=== PATIENT | male | born 1970 | race Caucasian/White ===

== ENCOUNTER 2017-06-18 08:47 | Day surgery (SDC) | payer BC, OTHER ==
--- NOTE | 2017-06-12 15:28 | GHP ---
[f rep st] PREOP HISTORY AND PHYSICAL DATE OF ADMISSION: 06/18/2017 CHIEF COMPLAINT: Right ankle. HISTORY OF PRESENT ILLNESS: Patient is a 47-year-old who had previously undergone a right ankle arthrodesis. The patient did well initially, but was having progressive pain in his subtalar joint. He is having significant limitations in his activity level secondary to his symptoms. PHYSICAL EXAMINATION: GENERAL: On examination, he is 5 feet 11 inches tall, weighs 335 pounds. HEENT: Head is normocephalic. Pupils equal, round, reactive to light. Extraocular eye movements intact. NECK: Supple. No JVD or lymphadenopathy. CHEST: Clear to auscultation. HEART: Regular rate and rhythm. No murmurs or gallops. ABDOMEN: Soft, nontender, nondistended. GENITAL, RECTAL, AND BREASTS: Deferred. EXTREMITIES: Reveal tenderness in his lateral subtalar region. He has a clinically solid ankle arthrodesis. MEDICINES: Takes no medicines. ALLERGIES: He lists no known drug allergies. SOCIAL HISTORY: Negative for tobacco use. SURGICAL HISTORY: Positive for right ankle surgery, hernia surgery. PAST MEDICAL HISTORY: Positive for elevated cholesterol and sleep apnea. IMPRESSION: 1. Right subtalar arthrosis. 2. Status post right total ankle arthroplasty. PLAN: Based on persistence symptoms, he is interested in pursuing operative treatment. From an operative standpoint, subtalar arthrodesis and takedown of his ankle arthrodesis and conversion to a total ankle arthroplasty are recommended. /[id number]/MODL MTDD
[2017-06-18] MEDS ORDERED: BUPIVACAINE 0.5% 30 ML SDV ONE ×3 (08:49→11:54)
[2017-06-18] MEDS ORDERED: LR 1,000 ML IV ONE (09:05)
[2017-06-18] MEDS ORDERED: ceFAZolin 3 GM in STERILE WATER INJ 30 ML IV ONE (10:00)
[2017-06-18] MEDS ORDERED: oxyCODONE IR 5 MG TAB PO PRN (10:21)
[2017-06-18] MEDS ORDERED: PROMETHAZINE HCL 25 MG/ML INJ IVP PRN (10:21)
[2017-06-18] MEDS ORDERED: ONDANSETRON 4 MG/2 ML VIAL IVP PRN ×2 (10:21→15:05)
--- NOTE | 2017-06-18 10:21 | PDHPUP ---
History & Physical Update H&P update statement: This history and physical update is based on an assessment of the patient which was completed after admission or registration (within 24 hours), but prior to the surgery/procedure. HPI Isacc presents today to further discuss the prospect of orthopedic surgery concerning his right ankle advanced subtalar arthrosis. He reports no changes in his symptoms since his previous visit. ROS ROS as noted in the HPI Physical Exam Patient is a 47-year-old male. Left with heel valgus and loss of the longitudinal arch. Right shows physiologic heel valgus and maintenance of the arch. Bilateral dorsalis pedis and tibialis posterior pulses are palpable. Dermatologically, there are no abnormal callosities, lesions or ulcers. Sensations are normal in sural and deep/superficial peroneal nerve distribution bilaterally. The right foot is markedly tender overlying the lateral subtalar joint. Essentially no hindfoot ROM. No ankle ROM (in the setting of fusion). Well- healed anterior surgical incision. The left foot/ankle demonstrates 5/5 strength in dorsiflexion, plantarflexion, inversion and eversion. The ankle is stable to anterior drawer and inversion stresses. ROM is full throughout the ankle and hindfoot. Assessment / Plan 1. ADVANCED RIGHT SUBTALAR ARTHROSIS 2. S/P RIGHT ANKLE FUSION 2005 Based on Isacc's persistence of symptoms refractory to an appropriate course of non-operative treatment he is interested in pursuing operative intervention ( specifically, right subtalar fusion +/- takedown of tibiotalar fusion with total ankle arthroplasty). The operative procedure, operative risks and post-op plan were described in detail. All questions were answered. Follow-up will be post-operative. 15 minutes was spent in face to face contact, greater than 50% of which was spent discussing and coordinating patient care. 60 oxycodone (5mg) and 14 Oxycontin (10mg) dispensed for post operative pain 1. Localized, primary osteoarthritis of the ankle and/or foot - Right M19.071: Primary osteoarthritis, right ankle and foot oxycodone 5 mg tablet - take 1-3 tab PO Q4H or PRN pain Qty: 60 tablet(s) Refills: 0 Pharmacy: N/A Zofran 4 mg tablet - Take 2 tablet(s) twice a day by oral route. Qty: 20 tablet(s) Refills: 0 Pharmacy: N/A OxyContin 10 mg tablet,crush resistant,extended release - Take 1 tablet(s) every 12 hours by oral route. Qty: 14 tablet(s) Refills: 0 Pharmacy : N/A Return to Office Ramos Loving M.D. for Surgery [facility] at Surgery on 06/18/2017 at 10:30 AM Indy Byrne PA-C for Surgery [facility] at [facility] on 06/18/2017 at 10:30 AM
[2017-06-18] MEDS ORDERED: diphenhydrAMINE 25 MG CAP PO PRN (10:28)
[2017-06-18] MEDS ORDERED: MAGNESIUM HYDROXIDE 30 ML UDCUP PO PRN (10:30)
[2017-06-18] MEDS ORDERED: SENNOSIDES 1 TAB PO PRN (10:35)
[2017-06-18] MEDS ORDERED: MIDAZOLAM 2 MG/2 ML VIAL ONE (11:05)
[2017-06-18] MEDS ORDERED: ROPIVACAINE HCL 150 MG/30 ML INJ ONE (11:09)
[2017-06-18] MEDS ORDERED: MIDAZOLAM 2 MG/2 ML VIAL IVP ONE (11:39)
--- NOTE | 2017-06-18 11:39 | PDANEPAE ---
ANE History of Present Illness ankle ANE Past Medical History - Cardiovascular History Hx Hypertension: No Hx Arrhythmias: No Hx Chest Pain: No Hx Coronary Artery / Peripheral Vascular Disease: No Hx CHF / Valvular Disease: No Hx Palpitations: No - Pulmonary History Hx COPD: No Hx Asthma/Reactive Airway Disease: No Hx Recent Upper Respiratory Infection: No Hx Oxygen in Use at Home: No Hx Sleep Apnea: Yes Sleep Apnea Screening Result - Last Documented: Positive - Neurologic History Hx Cerebrovascular Accident: No Hx Seizures: No Hx Dementia: No - Endocrine History Hx Diabetes: No Hypothyroid: No Hyperthyroid: No - Renal History Hx Renal Disorders: No - Liver History Hx Hepatic Disorders: No - Neurological & Psychiatric Hx Hx Neurological and Psychiatric Disorders: No - Chronic Pain History Chronic Pain: No ANE Review of Systems Review of Systems: - Exercise capacity Exercise capacity: limited by disability METS (RN): 4 METS ANE Patient History - Allergies Allergies/Adverse Reactions: No Known Drug Allergies Allergy (Verified 06/18/17 09:30) - Home Medications Home Medications: NK [No Known Home Meds] 06/18/17 [Last Taken Unknown] - NPO status NPO Since - Liquids (Date): 06/17/17 NPO Since - Liquids (Time): 20:00 NPO Since - Solids (Date): 06/17/17 NPO Since - Solids (Time): 20:00 - Anes Hx Anes Hx: no prior problems, slow to awaken from anesthesia ANE Labs/Vital Signs - Vital Signs Blood Pressure: 145/86 Heart Rate: 70 Respiratory Rate: 16 O2 Sat (%): 91 Height: 180.34 cm Weight: 151.953 kg ANE Physical Exam - Airway Mallampati Score: Class 2 Mouth exam: normal dental/mouth exam - Pulmonary Pulmonary: no respiratory distress - Cardiovascular Cardiovascular: regular rate and rhythym - ASA Status ASA Status: II ANE Anesthesia Plan Anesthesia Plan: general endotracheal anesthesia Regional Anesthesia: single shot NB, adductor canal FNB, POPC/PSR
[2017-06-18] MEDS ORDERED: PROPOFOL 200 MG/20 ML VIAL ONE (11:55)
[2017-06-18] MEDS ORDERED: fentaNYL 100 MCG/2 ML INJ ONE (11:55)
--- NOTE | 2017-06-18 11:55 | PDANEPAE ---
ANE Past Medical History - Cardiovascular History Hx Hypertension: No Hx Arrhythmias: No Hx Chest Pain: No Hx Coronary Artery / Peripheral Vascular Disease: No Hx CHF / Valvular Disease: No Hx Palpitations: No - Pulmonary History Hx COPD: No Hx Asthma/Reactive Airway Disease: No Hx Recent Upper Respiratory Infection: No Hx Oxygen in Use at Home: No Hx Sleep Apnea: Yes Sleep Apnea Screening Result - Last Documented: Positive - Neurologic History Hx Cerebrovascular Accident: No Hx Seizures: No Hx Dementia: No - Endocrine History Hx Diabetes: No Hypothyroid: No Hyperthyroid: No - Renal History Hx Renal Disorders: No - Liver History Hx Hepatic Disorders: No - Neurological & Psychiatric Hx Hx Neurological and Psychiatric Disorders: No - Chronic Pain History Chronic Pain: No ANE Review of Systems Review of Systems: - Exercise capacity METS (RN): 4 METS ANE Patient History - Allergies Allergies/Adverse Reactions: No Known Drug Allergies Allergy (Verified 06/18/17 09:30) - Home Medications Home Medications: NK [No Known Home Meds] 06/18/17 [Last Taken Unknown] - NPO status NPO Since - Liquids (Date): 06/17/17 NPO Since - Liquids (Time): 20:00 NPO Since - Solids (Date): 06/17/17 NPO Since - Solids (Time): 20:00 ANE Labs/Vital Signs - Vital Signs Blood Pressure: 145/86 Heart Rate: 70 Respiratory Rate: 16 O2 Sat (%): 91 Height: 180.34 cm Weight: 151.953 kg ANE Anesthesia Plan Regional Anesthesia: continuous NB, adductor canal FNB (Pre-Op Block with Ultrasound for both the Right Popliteal Nerve and Right Adductor. Sterile prep /drap for Right Popliteal, Ultrasound guided, 15cc of 0.5% Ropivicaine injected and catheter confirmed visually in the correct location Block time 11:. The Right Adductor block with ultrasound), popliteal SNB Urgent/Emergent Case: Richard rudolph completed preop but documented later for safe timely pt care
[2017-06-18] MEDS ORDERED: SUCCINYLCHOLINE CHLORIDE 200 MG/10 ML SYR IVP ONE (11:56)
[2017-06-18] MEDS ORDERED: ONDANSETRON 4 MG/2 ML VIAL ONE (11:56)
[2017-06-18] MEDS ORDERED: KETOROLAC 30 MG/1 ML SDV ONE (11:56)
[2017-06-18] MEDS ORDERED: ROCURONIUM 100 MG/10 ML VIAL ONE (11:56)
[2017-06-18] MEDS ORDERED: DEXAMETHASONE 4 MG/ML VIAL ONE (11:56)
[2017-06-18] MEDS ORDERED: LIDOCAINE 2% 5 ML SDV ONE ×3 (11:57→12:23)
[2017-06-18] MEDS ORDERED: LABETALOL HCL 5 MG/ML 20 ML MDV ONE (12:35)
[2017-06-18] MEDS ORDERED: ROPIVACAINE 0.2% 1,100 MG in PUMP SET 1 EA NB SCH (13:00)
[2017-06-18] MEDS ORDERED: ACETAMINOPHEN 500 MG TAB PO SCH (14:00)
[2017-06-18] MEDS ORDERED: SUGAMMADEX SODIUM 200 MG/2 ML VIAL IVP ONE ×2 (14:23)
[2017-06-18] MEDS ORDERED: LIDOCAINE 2% JELLY 5 ML TUBE ONE (14:36)
[2017-06-18] MEDS ORDERED: NALOXONE HCL 0.4 MG/ML INJ IVP PRN (15:05)
[2017-06-18] MEDS ORDERED: HYDROmorphONE/DILAUDID 1 MG/ML INJ IVP PRN (15:05)
[2017-06-18] MEDS ORDERED: fentaNYL 100 MCG/2 ML INJ IVP PRN (15:05)
[2017-06-18] MEDS ORDERED: ALBUTEROL 3 ML DEYVIAL IH PRN (15:05)
--- NOTE | 2017-06-18 15:06 | POSTANESTH ---
Post Anesthetic Evaluation Cardiovascular Status: Normal, Stable Respiratory Status: Normal, Stable Level of Consciousness/Mental Status: Can Participate in Eval Pain Control: Adequate, Prn Tx Ordered Nausea/Vomiting Control: Adequate, Prn Tx Ordered Complications Possibly Related to Anesthesia: None Noted
[2017-06-18 16:09] VITALS: BP 149/81; PULSE 68; RESP 16; TEMP 98.8; O2SAT 96
[2017-06-18] MEDS ORDERED: ceFAZolin 2 GM/DEXTROSE 100 ML IV SCH (20:00)
[2017-06-18] MEDS ORDERED: DOCUSATE SODIUM 100 MG CAP PO SCH (21:00)
[2017-06-18] MEDS ORDERED: ENOXAPARIN 30 MG/0.3 ML SYR SC SCH (21:00)
--- NOTE | 2017-06-19 19:46 | POSTOPPROG ---
Post Op Note Date of Operation: 06/19/17 Surgeon: Ramos Loving Facility Environmental Technician: ARIANNE Byrne Anesthesia: GET(General Endotracheal) Pre-op Diagnosis: Subtalar arthrosis, Ankle Anklyosis Right Post-op Diagnosis: Same Procedure: R Tibial osteotomy, TAA, Subtalar arthrodesis Inf/Abcess present in the surg proc area at time of surgery?: No EBL: 50-100 Complications: none
--- NOTE | 2017-06-20 05:25 | GOP ---
[f rep st] OPERATIVE REPORT DATE OF OPERATION: 06/18/2017 SURGEON: Ramos Loving MD ELIGIBILITY ANALYST: Indy Byrne PA-C, who was necessary for the completion of the surgery. ANESTHESIA: General, plus indwelling popliteal block performed by the anesthesiologist at my request for postoperative pain management. PREOPERATIVE DIAGNOSIS: 1. Right ankle ankylosis. 2. Right subtalar arthrosis. 3. Retained hardware. POSTOPERATIVE DIAGNOSIS: 1. Right ankle ankylosis. 2. Right subtalar arthrosis. 3. Retained hardware. PROCEDURE PERFORMED: 1. Right tibial osteotomy. 2. Right total ankle arthroplasty. 3. Right subtalar arthrodesis. 4. Hardware removal, right tibia. 5. Intraoperative use fluoroscopy. FINDINGS: ESTIMATED BLOOD LOSS: Minimal. INDICATIONS: Patient is a 47-year-old, who had previously undergone right ankle arthrodesis. Patien t was having increasing pain despite doing well initially, in his lateral hindfoot, as well as gait a lteration affecting his knee and hip. Clinically and radiographically, he was noted to have a solid ankle arthrodesis, but a subtalar arthrosis. After a long discussion with the patient regarding his options, including subtalar arthrodesis in an isolated option or subtalar arthrodesis with takedown o f his ankle arthrodesis, conversion to a total ankle arthroplasty, the patient elected to pursue a to singh ankle arthroplasty. He acknowledged he understood the potential risks, including, but not limite d to, bleeding, infection, neurovascular damage, loss of limb function, implant failure, malunion, no nunion of his subtalar arthrodesis, need for additional surgery, such as revision of his ankle arthro plasty, conversion back to an arthrodesis, or amputation and anesthetic risks. He acknowledged he un derstood the potential risks, planned procedure, and postoperative plan well. Had all questions answ ered prior to surgery. He additionally acknowledged that his weight was putting added stress on his ankle and that post surgery, it would be prudent to get on a proper weight loss program. He gave con sent for the operation. DESCRIPTION OF PROCEDURE: Patient was brought to the operating after IV antibiotics were administere d in preop holding. Indwelling popliteal block was performed by the anesthesiologist at my request f or postoperative pain management, prior to coming back to the operating room. He was placed in supin e position, where general anesthetic was administered. A tourniquet was placed on his right upper ca lf, and his right lower leg was prepped and draped in standard sterile fashion. After marking the in cision, Jayme wrap exsanguination, tourniquet was inflated to 250. His previous anterior incision was utilized for exposure. Skin and subcutaneous tissue were sharply incised. The extensor retinaculum was incised in line with the skin incision. The interval between the tibialis anterior and extensor hallucis longus was utilized for exposure to the ankle, taking car e to avoid damage to the neurovascular bundle. The capsule was incised and reflected medially and la terally. The anterior plate and screws were freed of their fibrous overgrowth and removed without di fficulty. Additional medial and lateral screws were identified fluoroscopically. Small incisions we re made over these with dissection carried down the screw heads. The screws were removed without dif ficulty. Under fluoroscopic guidance, the location of the normal articulations between the tibia and the talus were identified. K-wires were utilized to nathaly this level, as well as the angle of the plafond. Th e medial and lateral corners were drilled with a 3.5 mm drill bit. A saw was utilized to perform a " tibial osteotomy," taking down the ankle arthrodesis both transversely and through the medial and lat eral gutters. The osteotomy was gapped open with an osteotome. The gutters were debrided utilizing a chisel, gaining increased mobility through the articulation. It was not possible to use the cuttin g guides to make these cuts, and therefore, freehand techniques were used. The transverse cut on the talus was felt to be favorable for a dome cut. Posterior and anterior cutting guide performed, the Integra Susan Total Ankle was placed on this and positioned properly. After confirming proper positioning, this was pinned into place. The posterior cut was made was sole . The anterior cuts were made utilizing the reaming device. A size 2 talar trial was impacted into place and found to have favorable fit. After templating, the appropriate level and size for the tibi al cut, a size 3 extended tibial trial was impacted into place with a 6 mm polyethylene liner and fou nd to have favorable fit. The tibial keel holes were drilled with the reamer. Definitive 3 extended and size 2 tibial and talar implants with 6 mm polyethylene were impacted into place. The ankle was taken through range of motion, found to have favorable motion with no bony impingement. Attention was then directed toward the subtalar arthrodesis. A limited lateral hindfoot incision was made. Skin and subcutaneous tissue were sharply incised. The dissection was carried dorsal to the peroneal tendons, exposing the lateral subtalar joint. Utilizing a chisel, rongeur, and curettes, th e articular surface was denuded. Subchondral bone was drilled multiple times with a 2.0 mm drill bit and further roughened with a chisel. Cancellous bone graft harvested from removed portions of bone from the total ankle implant were morselized and packed into place in the subtalar joint. Two 4.0 mm cortical screws were placed in lag fashion from the neck of the talus into the calcaneus. Fluorosco pic views confirmed favorable hardware and arthrodesis positions. Attention was directed towards closure. The ankle capsule and extensor retinaculum were closed with 2-0 Vicryl suture in interrupted fashion. The tourniquet was deflated with no untoward bleeding seen . Subcutaneous tissue closed with 3-0 Vicryl suture in interrupted fashion. Skin was closed with 3- 0 nylon interrupted vertical mattress sutures, and the anterior incision with skin alvin laterally. The wounds were dressed with sterile Adaptic, 4 x 4, and Webril, and the leg was placed in a below- knee splint. Patient tolerated the procedure well, was taken to the recovery room extubated in stable condition po stoperatively. All sponge, needle, and instrument counts were reported as being correct. DRAINS: None. COMPLICATIONS: None. PLAN: Patient will be discharged home nonweightbearing on his operative extremity. /[id number]/MODL
== END 2017-06-18 16:10 | disposition home or self-care (01) ==
LOC: FSGY 08:47 → F3E 10:21 → UNDOADMOB 10:21 → F3E 15:24 → F3N 15:24 → FSGY 16:10
PROVIDERS: ATTEND Orthopaedic Surgery Foot and Ankle Surgery
PROC: 0SGH07Z Fusion of Right Tarsal Joint with Autologous Tissue Substitute, Open Approach (ICD-10-PCS; principal; 2017-06-18 10:30)
PROC: 0SRF0JZ Replacement of Right Ankle Joint with Synthetic Substitute, Open Approach (ICD-10-PCS; principal; 2017-06-18 10:30)
DX: M19.071 Primary osteoarthritis, right ankle and foot (principal); M24.671 Ankylosis, right ankle; E78.5 Hyperlipidemia, unspecified; G47.30 Sleep apnea, unspecified
CPT/HCPCS: C1713; J0330; J0690; J1100; J1650; J1885; J2250; J2405; J2704; J2795; J3010; J3490